=== PATIENT | female | born 1985 | race African-American/Black ===

== ENCOUNTER 2020-01-02 13:04 | Emergency (ER) | payer OTHER, SELFPAY ==
[2020-01-02 13:22] VITALS: BP 157/93; PULSE 85; RESP 18; TEMP 36.7; O2SAT 98
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
[2020-01-02 14:09] VITALS: BP 149/90; PULSE 85; RESP 18; O2SAT 100
[2020-01-02] MEDS: KETOROLAC (*BKC) 60 MG/2 ML VIAL IM (14:09)
== END 2020-01-02 14:10 | disposition home or self-care (01) ==
PROVIDERS: Emergency Provider Emergency Medicine
DX: S29.012A Strain of muscle and tendon of back wall of thorax, initial encounter (principal); S39.012A Strain of muscle, fascia and tendon of lower back, initial encounter; V43.52XA Car driver injured in collision with other type car in traffic accident, initial encounter
CPT/HCPCS: 96372; 99283; J1885

== ENCOUNTER → 2020-05-09 10:15 | Outpatient (CLI) | payer OTHER, SELFPAY ==
--- NOTE | ~2020-05-09 | US_ITS ---
EXAMINATION: US pelvic complete w TV DATE: 05/09/2020 10:54 INDICATION: Excessive and frequent menstruation. Comparison:Ultrasound dated 10/27/2018 TECHNIQUE: Multiple transabdominal and endovaginal sonographic images of the pelvis performed. FINDINGS: The uterus measures 10.5 x 6.4 x 6.6 cm. There is a complex area in the posterior aspect of the fundus measuring 3.2 x 2.5 x 2.6 cm, compatible with uterine fibroid. The endometrial complex me asures 1.4 cm. The right ovary measures 3.5 x 2.1 x 3.7 cm and the left ovary measures 3.8 x 3.4 x 3.9 cm. There is a 2.6 cm right ovarian cyst. There is fluid in the left adnexa which measures 7 x 5 x 4.4 cm which ma y represent an exophytic ovarian cyst or free fluid. There is no free fluid in the pelvis. There are no abnormal masses seen on either side. IMPRESSION: 1. Enlarged uterus containing a 3.2 cm fibroid with endometrial thickening. 2: Large fluid collection left adnexa which may represent an exophytic cyst or free fluid measuring u p to 7 cm. Recommend follow-up ultrasound to assess for resolution. 3: 2.6 cm right ovarian cyst. Reviewed, dictated and finalized at location B. IMPRESSION: 1. Enlarged uterus containing a 3.2 cm fibroid with endometrial thickening. 2: Large fluid collection left adnexa which may represent an exophytic cyst or free fluid measuring up to 7 cm. Recommend follow-up ultrasound to assess for r esolution. 3: 2.6 cm right ovarian cyst.
== END ==
PROVIDERS: Visit Provider Obstetrics & Gynecology
DX: N92.0 Excessive and frequent menstruation with regular cycle (principal); N85.2 Hypertrophy of uterus
CPT/HCPCS: 76830; 76856

== ENCOUNTER → 2021-01-01 15:42 | Outpatient (CLI) | payer OTHER, SELFPAY ==
--- NOTE | ~2021-01-01 | US_ITS ---
EXAMINATION: US transvaginal DATE: 01/01/2021 16:13 INDICATION: Pelvic pain Comparison:Ultrasound dated 05/09/2020 TECHNIQUE: Multiple transabdominal and endovaginal sonographic images of the pelvis performed. FINDINGS: The uterus measures 10.1 x 5.8 x 4.6 cm. There is a hypoechoic mass posterior aspect of the uterus measuring up to 2.6 cm, compatible with a fibroid. The endometrial complex measures 8 mm. The right ovary measures 3.6 x 3.2 x 2.5 cm and the left ovary measures 7.9 x 7.4 x 5.3 cm. There is a 2.1 cm right ovarian cyst. There is a persistent left adnexal cyst, likely ovarian measuri ng 7 x 5.7 x 4.1 cm. There is no free fluid in the pelvis. There are no abnormal masses seen on either side. IMPRESSION: 1. Persistent left adnexal cyst measuring up to 7 cm without significant change, likely ovarian. Cons iderations include complicated cyst, paraovarian/paratubal cyst, serous cystadenoma/cystadenocarcinom a and peritoneal inclusion cyst. 2: Right ovarian cyst measuring 2.1 cm. 3: Enlarged uterus containing 2.6 cm uterine fibroid. Reviewed, dictated and finalized at location A. LE TACKER IMPRESSION: 1. Persistent left adnexal cyst measuring up to 7 cm without significant change , likely ovarian. Considerations include complicated cyst, paraovarian/paratuba l cyst, serous cystadenoma/cystadenocarcinoma and peritoneal inclusion cyst. 2: Right ovarian cyst measuring 2.1 cm. 3: Enlarged uterus containing 2.6 cm uterine fibroid.
== END ==
PROVIDERS: Visit Provider Obstetrics & Gynecology
DX: R10.2 Pelvic and perineal pain (principal); N83.201 Unspecified ovarian cyst, right side
CPT/HCPCS: 76830

== ENCOUNTER 2023-02-10 15:39 | Outpatient (CLI) | payer BC, MEDICAID, SELFPAY ==
--- NOTE | ~2023-02-10 | US_ITS ---
EXAMINATION: US pelvic complete w TV DATE: 02/10/2023 16:39 INDICATION: Frequent menstruation Comparison:Ultrasound dated 01/01/2021 TECHNIQUE: Multiple transabdominal and endovaginal sonographic images of the pelvis performed. FINDINGS: The uterus measures 10.8 x 5.8 x 5.7 cm. The endometrial complex measures 2.2 mm. The right ovary is not visualized. Left ovary is enlarged measuring 7.2 x 5.8 x 6.1 cm and contains a simple cyst measuring 6.7 x 5.2 x 6.1 cm compared with 7 x 5.7 x 4.1 cm on prior study. There is no free fluid in the pelvis. There are no abnormal masses seen on either side. IMPRESSION: 1. No significant change to 6.7 cm left ovarian simple cyst. Differential diagnosis includes function al cysts, paraovarian/paratubal cyst, serous cystadenoma/cystadenocarcinoma and peritoneal inclusion cyst. Consider surgical consultation. 2: Enlarged uterus. No discrete uterine mass. Reviewed, dictated and finalized at location A. IMPRESSION: 1. No significant change to 6.7 cm left ovarian simple cyst. Differential diagn osis includes functional cysts, paraovarian/paratubal cyst, serous cystadenoma/ cystadenocarcinoma and peritoneal inclusion cyst. Consider surgical consultatio n. 2: Enlarged uterus. No discrete uterine mass.
== END 2023-02-10 15:40 | disposition home or self-care (01) ==
PROVIDERS: Visit Provider Nurse Practitioner
DX: N92.0 Excessive and frequent menstruation with regular cycle (principal)
CPT/HCPCS: 76830; 76856

== ENCOUNTER 2023-05-16 02:43 | Day surgery (SDC) | payer BC, MEDICAID, SELFPAY ==
[2023-04-18 14:14] VITALS: BMI 47.2
--- NOTE | 2023-04-18 14:26 | PC.NURSE ---
Report to the Outpatient Waiting Room, entrance under the green pavilion located off [facility], at time 8:00 on date 04/25/23. Planned Procedure Time: 10:00. Time changes happen often and if your time is changed the preop area will call you the afternoon before. - You and your visitor will be asked to self-screen and do not enter if you have any COVID symptoms. - A mask is optional within the hospital at this time. Patients may have clear liquids (water, carbonated beverages, clear teas, apple juice) until 3 hours prior to surgery (7:00) with a maximum of 20 ounces. - No food from midnight until time of surgery Take the following medications with a SIP of water the morning of surgery: CARVEDILOL DO NOT STOP ANY OF YOUR OTHER PRESCRIPTION MEDICATIONS PRIOR TO SURGERY EXCEPT THE FOLLOWING Medications to discontinue per physician: VITAMINS/SUPPLEMENTS Date to take last dose: 04/21/23 Please no make-up, nail german, hairspray, perfume, deodorant, or body powder the day of surgery. No jewelry (including any body piercings) or valuables the day of surgery, leave them at home. Please take a shower or bath the night before, or the morning of, surgery with an antibacterial soap. Wear comfortable, loose fitting clothing. - Jewelry must be removed prior to entering the operating room. Rings and piercings that are not removed may be cut off. - The hospital will not accept responsibility for valuables. - Please leave all valuables, including medications, at home the day of surgery. If you are going home after surgery, a licensed driver trainee must drive you home. - NO public transportation without another adult if you receive anesthesia. - We recommend that an adult stay with you for 24 hours following discharge. - We also recommend that you do not drive, make important decision, drink alcoholic beverages, or take any drugs that were not prescribed by your health care provider for at least 24 hours after your discharge time. Follow any additional instructions given to you from your surgeon. If you or anyone in your household have experienced Covid symptoms in the past week, please notify your surgeon or the nurse liaison at the phone number below for possible testing. Telephone instructions given to PT - GLORIA HUMPHREY and asked if any additional questions and then verbalized understanding. Patient advised to call surgeon office or pre surgery nurse liaison [phone] if any additional questions.
--- NOTE | 2023-04-25 07:38 | WPDHPUPDATE1 ---
History and Physical Update Update Date/Time: 04/25/23 07:38 History and Physical has been reviewed, including an updated exam of the patient. There are NO changes in the patient's condition. Risks, benefits, and alternatives have been discussed and questions answered. Patient agrees to proceed with procedure.
--- NOTE | 2023-04-25 07:48 | WPDANESEPPF ---
Anes - Initial Pre Proc Eval Procedure: Operation Date: 04/25/23 10:00 Proposed Procedures p Hysteroscopy Dilation and Curettage - Adriane Torres MD Date/Time: 04/25/23 07:48 Surgeon: Adriane Torres MD Pre Op Diagnosis: mennorhagia Patient Data Age: 38 Gender: F Height: 1.75 m Weight: 145.2 kg Allergies Allergy/AdvReac Type Severity Reaction Status Date / Time No Known Allergies Allergy Verified 05/16/23 10:16 Home Medications Medication Instructions Recorded Confirmed Type buspirone 30 mg tablet 30 mg PO HS 04/18/23 05/16/23 History carvedilol 25 mg tablet 25 mg PO BID 04/18/23 05/16/23 History docusate sodium 100 mg capsule 100 mg PO BID 04/18/23 05/16/23 History (Colace) ferrous sulfate 325 mg (65 mg 325 mg PO BID 04/18/23 05/16/23 History iron) tablet hydrochlorothiazide 25 mg tablet 25 mg PO DAILY 04/18/23 05/16/23 History olmesartan 40 mg tablet 40 mg PO DAILY 04/18/23 05/16/23 History zinc gluconate 100 mg tablet 100 mg PO DAILY 04/18/23 05/16/23 History Patient hx anesthesia problems: none Family hx anesthesia problems: none Results Review: All pre-operative results and documents have been reviewed as part of the pre-operative evaluation. [facility] Past Medical History Medical History (Updated 05/16/23 @ 08:46 by Adriane Torres MD) Anemia Anxiety Asthma HLD (hyperlipidemia) Hypertension Morbid obesity with BMI of 45.0-49.9, adult Surgical History Surgical History (Updated 04/25/23 @ 08:01 by Adriane Torres MD) Hx of myomectomy open procedure with a [id number] fibroid removed Social History Social History (Updated 01/02/20 @ 13:47 by Lonnie Mann, PA-C) Smoking status: Never smoker Alcohol intake: current Alcohol use details: COULD NOT GIVE A NUMBER Substance use: current Substance use type: marijuana Living arrangements: alone Gender identity (if verbalized by the patient): Female Spiritual care concerns: No Anes - Eval Final PreProcedure Day of Procedure 04/25/23 07:48 Patient weight: morbidly obese Heart: regular rate and rhythm Lungs: clear to auscultation Airway: Mallampati scale class II Neurological: alert and oriented Last oral intake: >/= 8 hours ASA classification: III Emergent: no Anesthetic plan: proceed Anesthesia type and monitoring: general GIVS and standard monitoring Results Review: All pre-operative results and documents have been reviewed as part of the pre-operative evaluation. Informed Consent: The patient's anesthetic plan and its attendant risks and benefits were discussed with the patient/family/POA. Questions were solicited and answers provided to the satisfaction of the patient/family/POA.
--- NOTE | 2023-04-25 07:57 | PM.HPGS ---
History of Present Illness History of Present Illness Consent: Risks, benefits, and alternatives have been discussed and questions answered. Patient agrees to proceed with procedure. Chief complaint: mennorhagia Narrative: Elodia Cristobal is a 38 year old female With heavy but regular cycles. Pelvic ultrasound reveals enlarged uterus at 10.8cm without discrete masses. Was recommended to proceed with D&C hysteroscopy. Risks of infection, bleeding, perforation, and possible pathology are discussed. Patient voices understanding and agrees to proceed. Review of Systems Review of Systems: not repeated day of surgery; patient states no changes in status PMFSH Past Medical History Medical History (Updated 04/25/23 @ 08:03 by Adriane Torres MD) Anemia Anxiety Asthma Hypertension Obesity Surgical History Surgical History (Updated 04/25/23 @ 08:01 by Adriane Torres MD) Hx of myomectomy open procedure with a [id number] fibroid removed Social History Social History (Updated 01/02/20 @ 13:47 by Lonnie Mann, PA-C) Smoking status: Never smoker Alcohol intake: current Alcohol use details: COULD NOT GIVE A NUMBER Substance use: current Substance use type: marijuana Living arrangements: alone Gender identity (if verbalized by the patient): Female Spiritual care concerns: No Meds Home Medications and Allergies Home Medications Medication Instructions Recorded Confirmed Type buspirone 30 mg tablet 30 mg PO HS 04/18/23 04/18/23 History carvedilol 25 mg tablet 25 mg PO BID 04/18/23 04/18/23 History docusate sodium 100 mg capsule 100 mg PO BID 04/18/23 04/18/23 History (Colace) ferrous sulfate 325 mg (65 mg 325 mg PO BID 04/18/23 04/18/23 History iron) tablet hydrochlorothiazide 25 mg tablet 25 mg PO DAILY 04/18/23 04/18/23 History olmesartan 40 mg tablet 40 mg PO DAILY 04/18/23 04/18/23 History zinc gluconate 100 mg tablet 100 mg PO DAILY 04/18/23 04/18/23 History Allergies Allergy/AdvReac Type Severity Reaction Status Date / Time No Known Allergies Allergy Verified 04/18/23 14:15 Exam Const: General: healthy appearing and alert Orientation/consciousness: patient oriented x3 Resp: Effort & Inspection: normal respiratory effort GI: GI Palp: Yes Soft to palpation, No Tenderness to palpation present (GI) and No Palpable mass present : External Female Exam: lesion ( 6cm left deep pigmented lesion biopsy proven to be seborrheic keratosis) Speculum Exam - Vagina: normal appearance of the vagina and normal vaginal discharge Speculum Exam - Cervix: normal appearance of the cervix Bimanual exam- vagina & uterus: uterine size normal and consistency normal Bimanual Exam- Adnexa, other: normal adnexae and No adnexal tenderness Neuro: General: patient oriented x3 Assessment and Plan Assessment and plan (1) Menorrhagia: Code(s): N92.0 - Excessive and frequent menstruation with regular cycle Status: Acute Assessment and Plan: plan to proceed with D&C hysteroscopy
--- NOTE | 2023-05-12 08:23 | SUR.PREOP ---
Patient verified no changes in health history since pre op interview in March. Medications reviewed with patient and pre op instructions. All questions and concerns answered. Report to the Outpatient Waiting Room, entrance under the green pavilion located off [facility], at time 1130 on date 05/16/2023. Planned Procedure Time: 1330. Time changes happen often and if your time is changed the preop area will call you the afternoon before. - You and your visitor will be asked to self-screen and do not enter if you have any COVID symptoms. - A mask is optional within the hospital at this time. Patients may have clear liquids (water, carbonated beverages, clear teas, apple juice) until 3 hours prior to surgery with a maximum of 20 ounces- 1030. - No food from midnight until time of surgery - Infants may have breast milk until 4 hours before surgery, infant formula 6 hours prior to surgery. - Children will be allowed to drink immediately following surgery. If applicable, please bring a bottle or sippy cup to assist with drinking. Juice, water, soda, and popsicles are readily available. For infants on formula, please bring formula the day of surgery. Pacifiers are allowed. Take the following medications with a SIP of water the morning of surgery: Carvedilol, Buspirone DO NOT STOP ANY OF YOUR OTHER PRESCRIPTION MEDICATIONS PRIOR TO SURGERY ?EXCEPT THE FOLLOWING Medications to discontinue per physician Vitamins- 3 days Date to take last dose 05/13/2023 Please no make-up, nail wolof, hairspray, perfume, deodorant, or body powder the day of surgery. No jewelry (including any body piercings) or valuables the day of surgery, leave them at home. Please take a shower or bath the night before, or the morning of, surgery with an antibacterial soap. Wear comfortable, loose fitting clothing. Children are encouraged to wear pajamas. - Jewelry must be removed prior to entering the operating room. Rings and piercings that are not removed may be cut off. - The hospital will not accept responsibility for valuables. - Please leave all valuables, including medications, at home the day of surgery. If you are going home after surgery, a licensed contract driver must drive you home. - NO public transportation without another adult if you receive anesthesia. - We recommend that an adult stay with you for 24 hours following discharge. - We also recommend that you do not drive, make important decision, drink alcoholic beverages, or take any drugs that were not prescribed by your health care provider for at least 24 hours after your discharge time. For Pediatric surgeries, we recommend two adults accompany the child home. Follow any additional instructions given to you from your surgeon. If you or anyone in your household have experienced Covid symptoms in the past week, please notify your surgeon or the nurse liaison at the phone number below for possible testing. Telephone instructions given to patient-Elodia and asked if any additional questions and then verbalized understanding. Patient advised to call surgeon office or pre surgery nurse liaison [phone] if any additional questions.
--- NOTE | 2023-05-13 18:20 | P.PNAN_ITS ---
Anes - Eval Pre Procedure Procedure: Operation Date: 05/16/23 11:15 Proposed Procedures p Hysteroscopy Dilation and Curettage - Adriane Torres MD Date/Time: 05/13/23 18:20 Pre Op Diagnosis: mennorhagia Patient Data Age: 38 Gender: F Height: 1.75 m Weight: 145.2 kg Allergies Allergy/AdvReac Type Severity Reaction Status Date / Time No Known Allergies Allergy Verified 05/12/23 08:12 Home Medications Medication Instructions Recorded Confirmed Type buspirone 30 mg tablet 30 mg PO HS 04/18/23 05/12/23 History carvedilol 25 mg tablet 25 mg PO BID 04/18/23 05/12/23 History docusate sodium 100 mg capsule 100 mg PO BID 04/18/23 04/18/23 History (Colace) ferrous sulfate 325 mg (65 mg 325 mg PO BID 04/18/23 05/12/23 History iron) tablet hydrochlorothiazide 25 mg tablet 25 mg PO DAILY 04/18/23 04/18/23 History olmesartan 40 mg tablet 40 mg PO DAILY 04/18/23 04/18/23 History zinc gluconate 100 mg tablet 100 mg PO DAILY 04/18/23 04/18/23 History Patient hx anesthesia problems: none Family hx anesthesia problems: none Results Review: All pre-operative results and documents have been reviewed as part of the pre- operative evaluation. [facility] Past Medical History Medical History (Updated 05/13/23 @ 18:20 by Meghan Almanzar CRNA) Anemia Anxiety Asthma HLD (hyperlipidemia) Hypertension Morbid obesity with BMI of 45.0-49.9, adult Obesity Surgical History Surgical History (Updated 04/25/23 @ 08:01 by Adriane Torres MD) Hx of myomectomy open procedure with a [id number] fibroid removed Social History Social History (Updated 01/02/20 @ 13:47 by Lonnie Mann, PA-C) Smoking status: Never smoker Alcohol intake: current Alcohol use details: COULD NOT GIVE A NUMBER Substance use: current Substance use type: marijuana Living arrangements: alone Gender identity (if verbalized by the patient): Female Spiritual care concerns: No Exam Day of Procedure 05/13/23 18:20
--- NOTE | 2023-05-16 08:43 | WPDHPUPDATE1 ---
History and Physical Update Update Date/Time: 05/16/23 08:43 History and Physical has been reviewed, including an updated exam of the patient. There are NO changes in the patient's condition. Risks, benefits, and alternatives have been discussed and questions answered. Patient agrees to proceed with procedure.
--- NOTE | 2023-05-16 08:44 | P.HP_ITS ---
History of Present Illness History of Present Illness Consent: Risks, benefits, and alternatives have been discussed and questions answered. Patient agrees to proceed with procedure. Chief complaint: mennorhagia Narrative: Elodia Cristobal is a 38 year old female who presents for D&C hysteroscopy secondary to menorrhagia. Patient had previously been scheduled on 04/25 but had a in the family and is now rescheduled to today. Risks of infection, bleeding, perforation, and possible pathology are reviewed. Patient voices understanding and agrees to proceed. Review of Systems Review of Systems: not repeated day of surgery; patient states no changes in status [facility] Past Medical History Medical History (Updated 05/16/23 @ 08:46 by Adriane Torres MD) Anemia Anxiety Asthma HLD (hyperlipidemia) Hypertension Morbid obesity with BMI of 45.0-49.9, adult Surgical History Surgical History (Updated 04/25/23 @ 08:01 by Adriane Torres MD) Hx of myomectomy open procedure with a [id number] fibroid removed Social History Social History (Updated 01/02/20 @ 13:47 by Lonnie Mann, PA-C) Smoking status: Never smoker Alcohol intake: current Alcohol use details: COULD NOT GIVE A NUMBER Substance use: current Substance use type: marijuana Living arrangements: alone Gender identity (if verbalized by the patient): Female Spiritual care concerns: No Meds Home Medications and Allergies Home Medications Medication Instructions Recorded Confirmed Type buspirone 30 mg tablet 30 mg PO HS 04/18/23 05/12/23 History carvedilol 25 mg tablet 25 mg PO BID 04/18/23 05/12/23 History docusate sodium 100 mg capsule 100 mg PO BID 04/18/23 04/18/23 History (Colace) ferrous sulfate 325 mg (65 mg 325 mg PO BID 04/18/23 05/12/23 History iron) tablet hydrochlorothiazide 25 mg tablet 25 mg PO DAILY 04/18/23 04/18/23 History olmesartan 40 mg tablet 40 mg PO DAILY 04/18/23 04/18/23 History zinc gluconate 100 mg tablet 100 mg PO DAILY 04/18/23 04/18/23 History Allergies Allergy/AdvReac Type Severity Reaction Status Date / Time No Known Allergies Allergy Verified 05/12/23 08:12 Exam Const: General: obese ( Weight 326 with a BMI of 49) Orientation/consciousness: patient oriented x3 Resp: Effort & Inspection: normal respiratory effort GI: GI Palp: Yes Soft to palpation, No Tenderness to palpation present (GI) and No Palpable mass present : External Female Exam: normal external appearance Speculum Exam - Vagina: normal appearance of the vagina and normal vaginal discharge Speculum Exam - Cervix: normal appearance of the cervix Bimanual exam- vagina & uterus: other ( uterus not palpable but per ultrasound is 10.8cm) Bimanual Exam- Adnexa, other: normal adnexae and No adnexal tenderness Neuro: General: patient oriented x3 Assessment and Plan Assessment and plan (1) Menorrhagia: Code(s): N92.0 - Excessive and frequent menstruation with regular cycle Status: Acute Assessment and Plan: plan is to proceed with D&C hysteroscopy
[2023-05-16 09:40] VITALS: BP 155/91; PULSE 78; RESP 16; TEMP 36.3; O2SAT 100
--- NOTE | 2023-05-16 09:48 | P.PNAN_ITS ---
Anes - Eval Final PreProcedure Day of Procedure 05/16/23 09:48 Patient weight: morbidly obese Heart: regular rate and rhythm Lungs: clear to auscultation Airway: Mallampati scale class II Neurological: alert and oriented Last oral intake: >/= 8 hours ASA classification: III Emergent: no Anesthetic plan: proceed Anesthesia type and monitoring: general GIVS and standard monitoring Results Review: All pre-operative results and documents have been reviewed as part of the pre- operative evaluation. Informed Consent: The patient's anesthetic plan and its attendant risks and benefits were discussed with the patient/family/POA. Questions were solicited and answers provided to the satisfaction of the patient/family/POA.
[2023-05-16] MEDS: ACETAMINOPHEN 500 MG TABLET 1000 MG PO (10:20)
[2023-05-16] MEDS: LACTATED RINGERS 1,000 ML 30 ML IV CONT (10:20)
[2023-05-16 10:23] LABS: Hematocrit 35.5 % (37.0-47.0); Hemoglobin 11.4 g/dL (12.0-15.0)
[2023-05-16 10:30] LABS: Anion Gap 7 mmol/L (8-16); Blood Urea Nitrogen 11 mg/dL (7-17); Calcium 8.3 mg/dL (8.4-10.2); Carbon Dioxide 27 mmol/L (22-30); Chloride 103 mmol/L (98-107); Estimated CRCL calculation 200 ml/min; Estimated Glomerular Filt Rate > 60; Glucose 101 mg/dL (65-110); Potassium 3.7 mmol/L (3.4-5.0); Sodium 137 mmol/L (137-145)
[2023-05-16] MEDS: KETOROLAC 30 MG/ML VIAL (*BKC) IV PUSH (11:41)
[2023-05-16 11:52] VITALS: BP 142/80; PULSE 68; RESP 16; O2SAT 100
[2023-05-16] MEDS: oxyCODONE HCL (*CRX) 5 MG TAB IR PO (12:15)
[2023-05-16 12:20] VITALS: BP 138/72; PULSE 60; RESP 20
[2023-05-16 12:50] VITALS: BP 126/72; PULSE 70; RESP 20
[2023-05-16 13:05] VITALS: BP 101/87; PULSE 75; RESP 20
--- NOTE | 2023-05-23 08:45 | W.PM.PROC2 ---
Procedure Note - Detailed Date of Procedure 05/16/23 Pre-op Diagnosis mennorhagia Post-op Diagnosis Same Procedure Performed D&C hysteroscopy Surgeon Adriane Torres MD Anesthesia MAC Findings uterus appears has large polyp in the endometrium as well as one that extends into the endocervical cavity Description of Procedure The patient is taken to the operating room and placed under anesthesia in the dorsal lithotomy position. She was prepped and draped usual sterile fashion. [place] speculum was placed in the vagina and the cervix grasped on the anterior lip with a tenaculum. The uterus is sounded and the hysteroscope placed. The uterus appears to have polyps. The resection device is opened and placed through the hysteroscope. Under direct visualization the polyps are removed in their entirety. The hysteroscope was removed and the sharp curette used to curette the endometrium until a good uterine cry was noted in all areas. All instruments are removed. Sponge, needle, and instrument counts are correct per the OR staff. Patient is awakened from anesthesia and taken to recovery in stable condition. Estimated Blood Loss 5 Drains No Packing No Pathology Yes ( Endometrial shavings and curettings) Complications No immediate complications Condition Stable Disposition PACU
== END 2023-05-16 13:10 | disposition home or self-care (01) ==
PROVIDERS: Anesthesiology; Visit Provider Obstetrics & Gynecology Gynecology
PROC: 0U5B8ZZ Destruction of Endometrium, Via Natural or Artificial Opening Endoscopic (ICD-10-PCS; CPT 58563; principal; 2023-05-16 11:15)
DX: N92.0 Excessive and frequent menstruation with regular cycle (principal); N84.0 Polyp of corpus uteri; I10 Essential (primary) hypertension; D64.9 Anemia, unspecified; E78.5 Hyperlipidemia, unspecified; F41.9 Anxiety disorder, unspecified; E66.01 Morbid (severe) obesity due to excess calories; Z68.42 Body mass index [BMI] 45.0-49.9, adult; F12.90 Cannabis use, unspecified, uncomplicated
CPT/HCPCS: 58558; 36415; 80048; 85014; 85018; 88305; A9270; J1100; J1885; J2250; J2405; J2704; J3010; J7120